=== PATIENT | female | born 1940 | race Caucasian/White ===

== ENCOUNTER 2017-06-29 18:26 | Inpatient (IN) | payer OTHER ==
[~2017-06-29] VITALS: Ht 157.5 cm; Wt 136.1 kg
[~2017-06-29 18:26] MED LIST: ABILIFY2 MG PO; ADULT LOW DOSE81 M1 PO; ALLOPURINOL300 MG PO; AQUA CARE71 GM TP; AQUAPHOR OINTM105 GM TP; AQUAPHOR W-NAT50 GM TP; ARICEPT10 MG PO; ASPIR 8181 M1 PO; ATIVAN0.5 MG PO; BACTRIM,SEPT1 TABLET PO; BAYER CHEWABLE81 MG PO; CALCIUM 600 +1 EA17 PO; CALMOSEPTINE O120 GM TP; CARDIZEM CD,CA180 MG PO; CELEXA20 MG PO; CLEOCIN300 MG PO; COUMADIN3 MG PO; CYANOCOBALAM1000 MCG PO; CYMBALTA30 MG PO; CYMBALTA60 MG PO; DELTASONE20 M1 PO; DEPAKENE250 MG/5 M PO; DIGITEK125 MC2 PO; DIGOX125 MCG PO; DONEPEZIL HCL10 MG PO; DUONEB 2.5-0.5 M3 ML AEROSOL; FEOSOL325 MG PO; FERROUS SULFAT325 MG PO; GLUCOPHAGE1000 MG PO; HYDROPHOR228 GM TP; IRON325 M1 PO; LASIX40 MG PO; LEVAQUIN500 MG PO; LIPITOR20 MG PO; LO-DOSE ASPIRIN81 M1 PO; LOPRESSOR25 MG PO; LORAZEPAM0.5 MG PO; METFORMIN HCL850 MG PO; METOPROLOL TART25 MG PO; MYCOSTATIN1 APPLICAT TP; NAMENDA XR14 MG PO; NAMENDA5 MG PO; NAPROSYN500 MG PO; NOVOLOG PE100 UNITS/ SC; NYAMYC60 GM TP; NYSTOP60 GM TP; OYSCO-500500 MG PO; OYSTER SHELL 51 EACH PO; PAXIL10 MG PO; POTASSIUM20 MEQ/11 PO; PREDNISONE20 MG PO; PROMETHAZINE-C120 ML PO; RISAMINE OINTM113 GM TP; SENEXON-S TABL1 EACH PO; SENNA PLUS TAB1 EACH PO; SEROQUEL12.5 MG PO; SEROQUEL50 MG PO; SPIRIVA RESPIMAT4 GM IH; TRAMADOL HCL50 MG PO; TYLENOL REGULA325 MG PO; Tums,OsCal PO; ULTRAM50 MG PO; WELLBUTRIN XL300 MG PO; XARELTO15 MG PO; ZANTAC150 MG PO; ZITHROMAX Z-PA250 MG PO; ZYLOPRIM100 MG PO; ZYLOPRIM300 MG PO
[2017-06-29 19:19] LABS: EOSINOPHIL (%) 0 % (0-5); HEMATOCRIT 40.1 % (36.0-46.0); IMMATURE GRANULOCYTE (%) 0.7 % (0.0-0.7); IMMATURE GRANULOCYTE COUNT 0.1 K/uL; LYMPHOCYTE COUNT 0.8 K/uL (1.0-2.8); MCH 30.4 PG (29.0-34.0); MCHC 32.9 G/DL (30.0-36.0); MCV 92.4 FL (83-99); MEAN PLAT.VOLUME 9.2 uM^3 (9.5-12.4); MONOCYTE (%) 8.1 % (3-12); MONOCYTE COUNT 1.7 K/uL (0-0.8); NEUTROPHIL (%) 87.1 % (45-76); PLATELET COUNT 313 K/uL (156-360); RBC DIS.WIDTH-SD 50.5 % (39-53); RED BLOOD COUNT 4.34 M/uL (3.80-5.20); WHITE BLOOD COUNT 20.7 K/uL (4.1-10.2)
[2017-06-29 19:27] LABS: CHLORIDE 98 mEq/L (99-109); POTASSIUM 3.8 mEq/L (3.7-5.4); SODIUM 135 mEq/L (136-147)
[2017-06-29 19:28] LABS: MAGNESIUM 1.5 mg/dL (1.3-2.7)
[2017-06-29 19:29] LABS: GLUCOSE 190 mg/dL (70-99)
[2017-06-29 19:31] LABS: ANION GAP 11 MEQ/L (2-14)
[2017-06-29 19:33] LABS: GFR ESTIMATE (CALCULATED) > 59 mL/min/
[2017-06-29 19:34] LABS: UREA NITROGEN (BUN) 14 mg/dL (9-23)
[2017-06-29 19:41] LABS: TROP-I INTERPRETATION INDETERMINATE; TROPONIN-I 0.36 ng/mL (0.0-0.30)
[2017-06-29 22:01] LABS: INTER. NORMALIZED RATIO 2.2; PROTHROMBIN TIME 25.5 SEC (10.2-12.9)
[2017-06-29 22:31] LABS: BICARBONATE 29.1 mEq/L (22-26); CARBOXY HGB 2.6 % (0-5); COMMENTS - BLOOD GASES A+C+; DEVICE NC; O2 FLOW 3 L/MIN; PCO2 40 mm Hg (35-45); PO2 58 mm Hg (80-100); SITE LR; TOTAL RESP RATE 23 resp/min; pH 7.47 (7.35-7.45)
[2017-06-29 23:15] VITALS: BP 129/65
[2017-06-29 23:57] VITALS: BP 129/65
[2017-06-30] MEDS ORDERED: ARTIFICIAL TEAR15 M1 BOTH EYES (01:50)
[2017-06-30] MEDS ORDERED: AZELASTINE137 MCG/0. BOTH NARES (01:57)
[2017-06-30] MEDS ORDERED: BREO ELLIPTA I1 EACH IH (01:58)
[2017-06-30] MEDS ORDERED: COUMADIN1 MG PO (02:03)
[2017-06-30] MEDS ORDERED: DEPAKENE250 MG/5 M PO ×2 (02:06→02:07)
[2017-06-30] MEDS ORDERED: LASIX20 MG PO (02:08)
[2017-06-30] MEDS ORDERED: METFORMIN HCL500 MG PO (02:09)
[2017-06-30] MEDS ORDERED: NAMZARIC 14 MG1 EACH PO (02:10)
[2017-06-30] MEDS ORDERED: ZOLOFT50 MG PO (02:17)
[2017-06-30] MEDS ORDERED: ZYLOPRIM300 MG PO (02:18)
[2017-06-30] MEDS ORDERED: MILK OF MAGN PO (02:28)
[2017-06-30] MEDS ORDERED: COUGH SYRU100 MG/5 M PO (02:29)
[2017-06-30] MEDS ORDERED: BISACODYL SUPP10 MG PR (02:31)
[2017-06-30 04:13] VITALS: BP 129/74
[2017-06-30 05:30] LABS: INTER. NORMALIZED RATIO 1.8; PROTHROMBIN TIME 20.5 SEC (10.2-12.9)
[2017-06-30 05:45] LABS: TROP-I INTERPRETATION INDETERMINATE; TROPONIN-I 0.33 ng/mL (0.0-0.30)
[2017-06-30 09:00] VITALS: BP 115/83
[2017-06-30] MEDS ORDERED: SEROQUEL50 MG PO (09:57)
[2017-06-30 11:59] VITALS: BP 114/65
[2017-06-30 13:00] LABS: TROP-I INTERPRETATION NEGATIVE; TROPONIN-I 0.29 ng/mL (0.0-0.30)
[2017-06-30 15:15] LABS: METH RESISTANT S AUREUS PCR POSITIVE (NEGATIVE)
[2017-06-30 15:17] LABS: PROBE CHECK PASS; SPECIMEN PROCESSING CONTROL PASS
[2017-06-30 16:31] VITALS: BP 117/75
[2017-06-30 18:58] VITALS: BP 116/76
[2017-06-30 20:44] LABS: TROP-I INTERPRETATION NEGATIVE; TROPONIN-I 0.27 ng/mL (0.0-0.30)
[2017-06-30 23:05] VITALS: BP 108/74
[2017-07-01 04:30] VITALS: BP 120/66
[2017-07-01 05:47] LABS: ANION GAP 14 MEQ/L (2-14); CHLORIDE 97 MEQ/L (99-109); GFR ESTIMATE (CALCULATED) 31 mL/min/; GLUCOSE 237 mg/dL (70-99); POTASSIUM 4.4 MEQ/L (3.7-5.4); SAMPLE HEMOLYSIS CHECK 0; SAMPLE ICTERIC CHECK 0; SAMPLE LIPEMIA CHECK 0; SODIUM 134 MEQ/L (136-147)
[2017-07-01 06:07] LABS: UREA NITROGEN (BUN) 47 mg/dL (9-23)
[2017-07-01 06:08] LABS: HEMATOCRIT 35.2 % (36.0-46.0); MCH 29.9 PG (29.0-34.0); MCHC 31.5 G/DL (30.0-36.0); MCV 94.9 FL (83-99); PLATELET COUNT 344 K/uL (156-360); RBC DIS.WIDTH-CV 14.6 % (11.8-14.6); RBC DIS.WIDTH-SD 50.7 % (39-53); RED BLOOD COUNT 3.71 M/uL (3.80-5.20); WHITE BLOOD COUNT 17.6 K/uL (4.1-10.2)
[2017-07-01 06:08] LABS: INTER. NORMALIZED RATIO 1.9; PROTHROMBIN TIME 21.9 SEC (10.2-12.9)
[2017-07-01 07:40] VITALS: BP 103/63
[2017-07-01 11:42] VITALS: BP 105/68
[2017-07-01 19:57] VITALS: BP 131/67
[2017-07-01 23:55] VITALS: BP 111/61
[2017-07-02 04:48] VITALS: BP 114/77
[2017-07-02 05:36] LABS: INTER. NORMALIZED RATIO 3.2; PROTHROMBIN TIME 36.6 SEC (10.2-12.9)
[2017-07-02 07:36] VITALS: BP 114/62
[2017-07-02 11:49] VITALS: BP 119/61
[2017-07-02 15:39] LABS: POINT-OF-CARE METER ID UU14208750
[2017-07-02 20:24] VITALS: BP 110/75
[2017-07-02 21:43] LABS: POINT-OF-CARE METER ID UU14208750
[2017-07-03] VITALS (8 sets, daily range): BP systolic 110–161; BP diastolic 60–78
[2017-07-03 06:34] LABS: POINT-OF-CARE METER ID UU14208750
[2017-07-03 06:54] LABS: INTER. NORMALIZED RATIO 3.9; PROTHROMBIN TIME 44.5 SEC (10.2-12.9)
[2017-07-03 06:58] LABS: HEMATOCRIT 35.7 % (36.0-46.0); MCH 30.8 PG (29.0-34.0); MCHC 32.8 G/DL (30.0-36.0); MCV 93.9 FL (83-99); MEAN PLAT.VOLUME 9.4 uM^3 (9.5-12.4); NRBC (%) 0.5 /100 WBC (0-0); PLATELET COUNT 382 K/uL (156-360); RBC DIS.WIDTH-CV 14.8 % (11.8-14.6); RBC DIS.WIDTH-SD 51.3 % (39-53); WHITE BLOOD COUNT 12.3 K/uL (4.1-10.2)
[2017-07-03 07:22] LABS: Estimated Average Glucose 186 mg/dL (70-123); HEMOGLOBIN A1c (GLYCOHEMOGLOB) 8.1 % HGB (Below 5.7)
[2017-07-03 07:27] LABS: ANION GAP 8 MEQ/L (2-14); CHLORIDE 102 MEQ/L (99-109); GFR ESTIMATE (CALCULATED) 57 mL/min/; GLUCOSE 175 mg/dL (70-99); POTASSIUM 4.4 MEQ/L (3.7-5.4); SAMPLE HEMOLYSIS CHECK 0; SAMPLE ICTERIC CHECK 0; SAMPLE LIPEMIA CHECK 0; SODIUM 139 MEQ/L (136-147); UREA NITROGEN (BUN) 48 mg/dL (9-23)
[2017-07-03 12:10] LABS: POINT-OF-CARE METER ID UU14314084; POINT-OF-CARE USER ID PUTDRM
[2017-07-03 16:45] LABS: POINT-OF-CARE METER ID UU14208750; POINT-OF-CARE USER ID PUTDRM
[2017-07-03 21:41] LABS: POINT-OF-CARE METER ID UU14162508
[2017-07-04 03:34] VITALS: BP 136/70
[2017-07-04 06:53] LABS: INTER. NORMALIZED RATIO 2.5; PROTHROMBIN TIME 28.2 SEC (10.2-12.9)
[2017-07-04 06:58] LABS: POINT-OF-CARE METER ID UU14162508
[2017-07-04 07:30] VITALS: BP 124/74
[2017-07-04 11:40] VITALS: BP 126/72
[2017-07-04 11:54] LABS: POINT-OF-CARE METER ID UU14314084; POINT-OF-CARE USER ID PUTDRM
[2017-07-04 17:00] VITALS: BP 138/68
[2017-07-04 17:17] LABS: POINT-OF-CARE METER ID UU14314084
[2017-07-04 19:00] VITALS: BP 178/65
[2017-07-04 20:02] LABS: POINT-OF-CARE METER ID UU14314084
[2017-07-04 21:08] VITALS: BP 178/65
[2017-07-05 04:19] VITALS: BP 119/85
[2017-07-05 07:20] VITALS: BP 136/82
[2017-07-05 07:34] LABS: PROTHROMBIN TIME 22.8 SEC (10.2-12.9)
[2017-07-05 07:59] LABS: GFR ESTIMATE (CALCULATED) > 59 mL/min/
[2017-07-05 08:51] LABS: URIC ACID 3.5 mg/dL (3.1-9.2)
[2017-07-05 12:27] LABS: POINT-OF-CARE METER ID UU14314084
[2017-07-05 16:06] VITALS: BP 142/72
[2017-07-05 16:55] LABS: POINT-OF-CARE METER ID UU14208750
[2017-07-05 19:50] VITALS: BP 135/98
[2017-07-05 21:19] LABS: POINT-OF-CARE METER ID UU14314084
[2017-07-05 21:30] VITALS: BP 152/93
[2017-07-06] VITALS (7 sets, daily range): BP systolic 110–142; BP diastolic 60–93
[2017-07-06 06:12] LABS: POINT-OF-CARE METER ID UU14208750
[2017-07-06 06:40] LABS: PROTHROMBIN TIME 22.8 SEC (10.2-12.9)
[2017-07-06 11:58] LABS: POINT-OF-CARE METER ID UU14208750
[2017-07-06 17:01] LABS: POINT-OF-CARE METER ID UU14208750
[2017-07-06 22:26] LABS: POINT-OF-CARE METER ID UU14162508
[2017-07-07 04:08] VITALS: BP 115/65
[2017-07-07 06:33] LABS: POINT-OF-CARE METER ID UU14162508
[2017-07-07 06:55] VITALS: BP 142/80
[2017-07-07 07:04] LABS: INTER. NORMALIZED RATIO 2.2; PROTHROMBIN TIME 25.7 SEC (10.2-12.9)
[2017-07-07 11:41] LABS: POINT-OF-CARE METER ID UU14162508
[2017-07-07 12:02] VITALS: BP 122/70
[2017-07-07 15:19] VITALS: BP 176/80
[2017-07-07 16:51] LABS: POINT-OF-CARE METER ID UU14314084
[2017-07-07 18:07] VITALS: BP 130/70
[2017-07-07] MEDS ORDERED: DONEPEZIL HCL10 MG PO (18:45)
[2017-07-07] MEDS ORDERED: AMOX TR-K CLV1 EAC4 PO (18:45)
[2017-07-07] MEDS ORDERED: PRAVASTATIN SOD80 MG PO (18:49)
[2017-07-07] MEDS ORDERED: PREDNISONE20 MG PO (18:52)
[2017-07-07] MEDS ORDERED: LEVEMIR100 UNIT/2 SC (18:53)
[2017-07-07] MEDS ORDERED: NOVOLOG PE100 UNITS/ SC (18:53)
[2017-07-07 19:36] VITALS: BP 129/96
[2017-07-07 21:50] LABS: POINT-OF-CARE METER ID UU14162508
[2017-07-08 00:25] VITALS: BP 128/83
[2017-07-08 03:44] VITALS: BP 125/58; BP 125/82
[2017-07-08 03:48] VITALS: BP 125/58
[2017-07-08 04:13] VITALS: BP 125/82
[2017-07-08 06:24] LABS: INTER. NORMALIZED RATIO 2.2; PROTHROMBIN TIME 25.1 SEC (10.2-12.9)
[2017-07-08 07:24] LABS: POINT-OF-CARE METER ID UU14162508
[2017-07-08 08:06] VITALS: BP 132/77
[2017-07-08 11:48] VITALS: BP 139/78
[2017-07-08 12:21] LABS: POINT-OF-CARE METER ID UU14162508
== END 2017-07-08 13:50 | DRG 193 ==
LOC: EME 18:26 → 4EAST 20:47 → EDOF 20:47 → ENRESERV 21:04 → 4EAST 23:05 → ENRESERV 07-02 13:35 → 2EAST 07-02 14:58
PROVIDERS: Emergency Medicine; Family Medicine
DX: J18.9 Pneumonia, unspecified organism (principal); J44.0 Chronic obstructive pulmonary disease with (acute) lower respiratory infection; J44.1 Chronic obstructive pulmonary disease with (acute) exacerbation; I11.0 Hypertensive heart disease with heart failure; I50.31 Acute diastolic (congestive) heart failure; E87.1 Hypo-osmolality and hyponatremia; I48.2 Chronic atrial fibrillation; R09.02 Hypoxemia; E78.5 Hyperlipidemia, unspecified; E11.51 Type 2 diabetes mellitus with diabetic peripheral angiopathy without gangrene; F01.50 Vascular dementia, unspecified severity, without behavioral disturbance, psychotic disturbance, mood disturbance, and anxiety; F41.9 Anxiety disorder, unspecified; F32.9 Major depressive disorder, single episode, unspecified; M19.90 Unspecified osteoarthritis, unspecified site; E66.01 Morbid (severe) obesity due to excess calories; Z68.43 Body mass index [BMI] 50.0-59.9, adult; Z79.01 Long term (current) use of anticoagulants; Z79.4 Long term (current) use of insulin; Z86.73 Personal history of transient ischemic attack (TIA), and cerebral infarction without residual deficits; Z87.891 Personal history of nicotine dependence; Z22.322 Carrier or suspected carrier of Methicillin resistant Staphylococcus aureus
CPT/HCPCS: 36600; 71010; 71020; 71260; 73630; 74230; 80048; 80202; 81003; 82565; 82803; 82948; 83036; 83605; 83735; 83880; 84443; 84484; 84550; 85025; 85027; 85610; 87040; 87070; 87086; 87205; 87449; 87641; 92611 GN; 93005; 93971; 94640; 94640 76; 94667; 94668; 94760; 94799; 97530 GO; 97530 GP; 99202; 99281; 99285; J1815; J2543; J2930; J3370; J3475; J7050; J7512; S0073

== ENCOUNTER 2017-07-11 05:16 | Inpatient (IN) | payer OTHER ==
[~2017-07-11] VITALS: Ht 157.5 cm; Wt 128.7 kg
[2017-07-11] VITALS (10 sets, daily range): BP systolic 104–144; BP diastolic 76–105
[~2017-07-11 05:16] MED LIST changes: +AMOX TR-K CLV1 EAC4 PO; +ARTIFICIAL TEAR15 M1 BOTH EYES; +AZELASTINE137 MCG/0. BOTH NARES; +BISACODYL SUPP10 MG PR; +BREO ELLIPTA I1 EACH IH; +COUGH SYRU100 MG/5 M PO; +COUMADIN1 MG PO; +LASIX20 MG PO; +LEVEMIR100 UNIT/2 SC; +METFORMIN HCL500 MG PO; +MILK OF MAGN PO; +NAMZARIC 14 MG1 EACH PO; +PRAVASTATIN SOD80 MG PO; +ZOLOFT50 MG PO
[2017-07-11 06:18] LABS: INTER. NORMALIZED RATIO 3.1
[2017-07-11 06:21] LABS: PTT 28.6 SEC (25-37)
[2017-07-11 06:23] LABS: BASE EXCESS 7.7 mEq/L (-3 to +3); BICARBONATE 33.2 mEq/L (22-26); CARBOXY HGB 3.6 % (0-5); COMMENTS - BLOOD GASES C+; DEVICE VENT; FI02 40 %; METHEMOGLOBIN 0.4 % (0-1.5); MODE NIV; PCO2 50 mm Hg (35-45); PO2 89 mm Hg (80-100); SITE RR; TOTAL RESP RATE 25 resp/min; pH 7.43 (7.35-7.45)
[2017-07-11 06:24] LABS: PEEP 6 CM/H20; PRES. SUPPORT 12 CM/H2O
[2017-07-11 06:24] LABS: CHLORIDE 100 mEq/L (99-109); MAGNESIUM 1.8 mg/dL (1.3-2.7); SODIUM 142 mEq/L (136-147)
[2017-07-11 06:25] LABS: GLUCOSE 219 mg/dL (70-99)
[2017-07-11 06:27] LABS: ANION GAP 14 MEQ/L (2-14)
[2017-07-11 06:29] LABS: GFR ESTIMATE (CALCULATED) > 59 mL/min/
[2017-07-11 06:30] LABS: UREA NITROGEN (BUN) 20 mg/dL (9-23)
[2017-07-11 06:33] LABS: TROP-I INTERPRETATION NEGATIVE; TROPONIN-I 0.25 ng/mL (0.0-0.30)
[2017-07-11 06:49] LABS: BASOPHIL COUNT 0.1 K/uL (0-0.1); EOSINOPHIL (%) 0.1 % (0-5); HEMATOCRIT 37.4 % (36.0-46.0); IMMATURE GRANULOCYTE (%) 1.4 % (0.0-0.7); IMMATURE GRANULOCYTE COUNT 0.4 K/uL; INSTRUMENT ABS NEUTROPHIL CT 23.5 K/uL; LYMPHOCYTE COUNT 1.5 K/uL (1.0-2.8); MCH 30.4 PG (29.0-34.0); MCHC 31.6 G/DL (30.0-36.0); MCV 96.4 FL (83-99); MEAN PLAT.VOLUME 9.3 uM^3 (9.5-12.4); MONOCYTE COUNT 1.6 K/uL (0-0.8); NEUTROPHIL (%) 86.9 % (45-76); NEUTROPHIL COUNT 23.5 K/uL (1.8-6.4); NRBC (%) 0.1 /100 WBC (0-0); PLATELET COUNT 405 K/uL (156-360); RBC DIS.WIDTH-CV 15.9 % (11.8-14.6); RED BLOOD COUNT 3.88 M/uL (3.80-5.20)
[2017-07-11] MEDS ORDERED: COUMADIN1 MG PO (08:24)
[2017-07-11] MEDS ORDERED: DILTIAZEM 24HR180 MG PO (08:28)
[2017-07-11] MEDS ORDERED: LASIX20 MG PO (08:31)
[2017-07-11] MEDS ORDERED: PREDNISONE20 MG PO (08:36)
[2017-07-11 11:33] LABS: METH RESISTANT S AUREUS PCR POSITIVE (NEGATIVE)
[2017-07-11 11:36] LABS: PROBE CHECK PASS
[2017-07-11 13:06] LABS: POINT-OF-CARE METER ID UU14314083
[2017-07-11 17:49] LABS: POINT-OF-CARE METER ID UU14314083
[2017-07-11 22:19] LABS: POINT-OF-CARE METER ID UU14314083
[2017-07-12] VITALS (13 sets, daily range): BP systolic 106–147; BP diastolic 76–117
[2017-07-12 07:48] LABS: POINT-OF-CARE METER ID UU14208751
[2017-07-12 11:53] LABS: POINT-OF-CARE METER ID UU14208751
[2017-07-12 15:07] LABS: POINT-OF-CARE METER ID UU14208751
[2017-07-12 15:15] LABS: INTER. NORMALIZED RATIO 3.2; PROTHROMBIN TIME 36.2 SEC (10.2-12.9)
[2017-07-12 21:01] LABS: POINT-OF-CARE METER ID UU13113725
[2017-07-13 00:07] VITALS: BP 128/75
[2017-07-13 06:35] LABS: EOSINOPHIL (%) 0.4 % (0-5); EOSINOPHIL COUNT 0.1 K/uL (0-0.3); HEMATOCRIT 33.1 % (36.0-46.0); IMMATURE GRANULOCYTE (%) 0.6 % (0.0-0.7); IMMATURE GRANULOCYTE COUNT 0.1 K/uL; INSTRUMENT ABS NEUTROPHIL CT 11.1 K/uL; LYMPHOCYTE COUNT 1.8 K/uL (1.0-2.8); MCH 30.3 PG (29.0-34.0); MCHC 31.7 G/DL (30.0-36.0); MCV 95.4 FL (83-99); MEAN PLAT.VOLUME 9.2 uM^3 (9.5-12.4); MONOCYTE (%) 7.2 % (3-12); NEUTROPHIL (%) 79.1 % (45-76); NEUTROPHIL COUNT 11.1 K/uL (1.8-6.4); PLATELET COUNT 377 K/uL (156-360); RBC DIS.WIDTH-CV 15.4 % (11.8-14.6); RBC DIS.WIDTH-SD 52.3 % (39-53); RED BLOOD COUNT 3.47 M/uL (3.80-5.20)
[2017-07-13 06:39] LABS: POINT-OF-CARE METER ID UU13113774
[2017-07-13 06:54] LABS: INTER. NORMALIZED RATIO 3.1; PROTHROMBIN TIME 35.1 SEC (10.2-12.9)
[2017-07-13 06:57] LABS: ANION GAP 10 MEQ/L (2-14); CHLORIDE 99 MEQ/L (99-109); GFR ESTIMATE (CALCULATED) > 59 mL/min/; GLUCOSE 128 mg/dL (70-99); POTASSIUM 3.8 MEQ/L (3.7-5.4); SAMPLE HEMOLYSIS CHECK 0; SAMPLE ICTERIC CHECK 0; SAMPLE LIPEMIA CHECK 0; SODIUM 144 MEQ/L (136-147); UREA NITROGEN (BUN) 26 mg/dL (9-23)
[2017-07-13 07:10] VITALS: BP 134/81
[2017-07-13 11:25] LABS: POINT-OF-CARE METER ID UU13113725
[2017-07-13] MEDS ORDERED: NOVOLOG PE100 UNITS/ SC (11:26)
[2017-07-13] MEDS ORDERED: Zeasorb Antifungal T TP (11:27)
== END 2017-07-13 14:18 | DRG 190 ==
LOC: EME → EDBD 05:16 → EME 05:16 → EDOF 08:47 → 4WEST 08:47 → ENRESERV 08:53 → 4WEST 09:20 → ENRESERV 07-12 16:30 → 5EAST 07-12 19:36
PROVIDERS: Emergency Medicine; Family Medicine; Internal Medicine Critical Care Medicine
PROC: 5A09358 Assistance with Respiratory Ventilation, Less than 24 Consecutive Hours, Intermittent Positive Airway Pressure (ICD-10-PCS; principal; 2017-07-11)
DX: J44.1 Chronic obstructive pulmonary disease with (acute) exacerbation (principal); J96.01 Acute respiratory failure with hypoxia; I11.0 Hypertensive heart disease with heart failure; I50.33 Acute on chronic diastolic (congestive) heart failure; I16.1 Hypertensive emergency; I48.2 Chronic atrial fibrillation; G47.33 Obstructive sleep apnea (adult) (pediatric); Z99.81 Dependence on supplemental oxygen; E87.2 Acidosis; D72.829 Elevated white blood cell count, unspecified; Z91.19 Patient's noncompliance with other medical treatment and regimen; F03.90 Unspecified dementia, unspecified severity, without behavioral disturbance, psychotic disturbance, mood disturbance, and anxiety; E11.51 Type 2 diabetes mellitus with diabetic peripheral angiopathy without gangrene; M19.90 Unspecified osteoarthritis, unspecified site; F32.9 Major depressive disorder, single episode, unspecified; F41.9 Anxiety disorder, unspecified; F42.9 Obsessive-compulsive disorder, unspecified; E66.9 Obesity, unspecified; Z68.43 Body mass index [BMI] 50.0-59.9, adult; E78.5 Hyperlipidemia, unspecified; Z87.01 Personal history of pneumonia (recurrent); Z86.73 Personal history of transient ischemic attack (TIA), and cerebral infarction without residual deficits; Z79.84 Long term (current) use of oral hypoglycemic drugs; Z79.01 Long term (current) use of anticoagulants; Z87.891 Personal history of nicotine dependence
CPT/HCPCS: 36600; 71010; 71250; 80048; 82803; 82948; 83605; 83735; 83880; 84484; 85025; 85610; 85730; 87040; 87502; 87641; 93005; 94002; 94640; 94660; 94799; 99281; 99285; J0692; J1815; J1940; J7050; J7512

== ENCOUNTER 2017-09-09 17:05 | Inpatient (IN) | payer OTHER ==
[~2017-09-09] VITALS: Ht 157.5 cm; Wt 124.8 kg
[~2017-09-09 17:05] MED LIST changes: +DILTIAZEM 24HR180 MG PO; +Zeasorb Antifungal T TP
[2017-09-09 18:05] LABS: HEMATOCRIT 36.4 % (36.0-46.0); HEMOGLOBIN 11.8 G/DL (11.9-15.5); MCH 29.1 PG (29.0-34.0); MCHC 32.4 G/DL (30.0-36.0); MCV 89.7 FL (83-99); PLATELET COUNT 451 K/uL (156-360); RBC DIS.WIDTH-CV 15.7 % (11.8-14.6); RBC DIS.WIDTH-SD 51.4 % (39-53); RED BLOOD COUNT 4.06 M/uL (3.80-5.20); WHITE BLOOD COUNT 11.1 K/uL (4.1-10.2)
[2017-09-09 18:11] LABS: INTER. NORMALIZED RATIO 3.2
[2017-09-09 18:13] LABS: PTT 33.3 SEC (25-37)
[2017-09-09 18:14] LABS: CHLORIDE 100 mEq/L (99-109); POTASSIUM 3.9 mEq/L (3.7-5.4); SODIUM 140 mEq/L (136-147)
[2017-09-09 18:16] LABS: GLUCOSE 167 mg/dL (70-99)
[2017-09-09 18:20] LABS: CREATININE 0.7 mg/dL (0.6-1.3); GFR ESTIMATE (CALCULATED) > 59 mL/min/; UREA NITROGEN (BUN) 10 mg/dL (9-23)
[2017-09-09 18:27] LABS: TROP-I INTERPRETATION INDETERMINATE; TROPONIN-I 0.49 ng/mL (0.0-0.30)
[2017-09-09] MEDS ORDERED: LOW DOSE ASPIRI81 M1 PO (19:07)
[2017-09-09] MEDS ORDERED: AZELASTINE137 MCG/0. BOTH NARES (19:08)
[2017-09-09] MEDS ORDERED: ATIVAN0.5 MG PO ×2 (19:08→19:19)
[2017-09-09] MEDS ORDERED: BREO ELLIPTA I1 EACH IH (19:09)
[2017-09-09] MEDS ORDERED: CALCIUM 600 +1 EAC3 PO (19:10)
[2017-09-09] MEDS ORDERED: COUMADIN3 MG PO (19:11)
[2017-09-09] MEDS ORDERED: CYMBALTA60 MG PO (19:11)
[2017-09-09] MEDS ORDERED: DEPAKENE250 MG/5 M PO ×2 (19:12→19:13)
[2017-09-09] MEDS ORDERED: DILTIAZEM 24HR180 MG PO (19:14)
[2017-09-09] MEDS ORDERED: GLUCOPHAGE1000 MG PO (19:15)
[2017-09-09] MEDS ORDERED: LASIX40 MG PO (19:15)
[2017-09-09] MEDS ORDERED: POTASSIUM20 MEQ/11 PO (19:16)
[2017-09-09] MEDS ORDERED: NAMZARIC 14 MG1 EACH PO (19:16)
[2017-09-09] MEDS ORDERED: PRAVACHOL80 MG PO (19:17)
[2017-09-09] MEDS ORDERED: SEROQUEL50 MG PO (19:17)
[2017-09-09] MEDS ORDERED: ULTRAM50 MG PO (19:18)
[2017-09-09] MEDS ORDERED: ZYLOPRIM300 MG PO (19:18)
[2017-09-09] MEDS ORDERED: ZOLOFT50 MG PO (19:18)
[2017-09-09] MEDS ORDERED: BISAC-EVAC10 MG PR (19:20)
[2017-09-09] MEDS ORDERED: COUGH SYRU100 MG/5 M PO (19:22)
[2017-09-10 06:40] LABS: HEMATOCRIT 35.5 % (36.0-46.0); HEMOGLOBIN 11.1 G/DL (11.9-15.5); MCH 28.2 PG (29.0-34.0); MCHC 31.3 G/DL (30.0-36.0); MCV 90.3 FL (83-99); NRBC (%) 0.7 /100 WBC (0-0); PLATELET COUNT 399 K/uL (156-360); RBC DIS.WIDTH-CV 15.6 % (11.8-14.6); RED BLOOD COUNT 3.93 M/uL (3.80-5.20); WHITE BLOOD COUNT 7.4 K/uL (4.1-10.2)
[2017-09-10 07:49] LABS: CHLORIDE 102 MEQ/L (99-109); SODIUM 141 MEQ/L (136-147)
[2017-09-10 07:51] LABS: POTASSIUM 4.7 MEQ/L (3.7-5.4)
[2017-09-10 07:54] LABS: CREATININE 0.9 MG/DL (0.6-1.3); GFR ESTIMATE (CALCULATED) > 59 mL/min/; GLUCOSE 170 mg/dL (70-99); UREA NITROGEN (BUN) 16 mg/dL (9-23)
[2017-09-10 08:55] LABS: INTER. NORMALIZED RATIO 2.5
[2017-09-10 16:29] VITALS: BP 120/83
[2017-09-10 17:40] LABS: TROP-I INTERPRETATION INDETERMINATE; TROPONIN-I 0.46 ng/mL (0.0-0.30)
[2017-09-10 19:27] VITALS: BP 114/62
[2017-09-10 22:32] VITALS: BP 118/92
[2017-09-11 02:43] VITALS: BP 124/82
[2017-09-11 07:54] LABS: INTER. NORMALIZED RATIO 2.5
[2017-09-11 10:28] LABS: BASE EXCESS -0.5 mEq/L (-3 to +3); BICARBONATE 24.9 mEq/L (22-26); CARBOXY HGB 2.1 % (0-5); COMMENTS - BLOOD GASES A+C+; METHEMOGLOBIN 1.7 % (0-1.5); PCO2 43 mm Hg (35-45); PO2 65 mm Hg (80-100); SITE LR; pH 7.37 (7.35-7.45)
[2017-09-11 10:29] LABS: DEVICE NC; O2 FLOW 4 L/MIN; TOTAL RESP RATE 20 resp/min
[2017-09-11 20:16] VITALS: BP 105/74
[2017-09-12 01:06] VITALS: BP 107/77
[2017-09-12 04:30] VITALS: BP 121/64
[2017-09-12 05:55] LABS: INTER. NORMALIZED RATIO 2.8
[2017-09-12 08:15] VITALS: BP 148/89
[2017-09-12 12:00] VITALS: BP 118/79
[2017-09-12 15:15] VITALS: BP 146/84
[2017-09-12 19:37] VITALS: BP 118/81
[2017-09-12 21:12] LABS: C DIFF TOXIN NEGATIVE (NEGATIVE)
[2017-09-13 05:32] LABS: INTER. NORMALIZED RATIO 3.6
[2017-09-13 08:30] VITALS: BP 138/82
[2017-09-13 11:10] VITALS: BP 120/82
[2017-09-13 16:24] VITALS: BP 121/88
[2017-09-13 18:27] VITALS: BP 138/89
[2017-09-13 20:24] VITALS: BP 130/72
[2017-09-14 00:15] VITALS: BP 135/74
[2017-09-14 03:58] VITALS: BP 128/72
[2017-09-14 06:49] LABS: HEMATOCRIT 36.6 % (36.0-46.0); HEMOGLOBIN 11.3 G/DL (11.9-15.5); MCH 28.3 PG (29.0-34.0); MCHC 30.9 G/DL (30.0-36.0); MCV 91.5 FL (83-99); NRBC (%) 0.6 /100 WBC (0-0); PLATELET COUNT 500 K/uL (156-360); RBC DIS.WIDTH-CV 15.9 % (11.8-14.6); WHITE BLOOD COUNT 12.4 K/uL (4.1-10.2)
[2017-09-14 06:54] LABS: INTER. NORMALIZED RATIO 3.7
[2017-09-14 07:25] LABS: ALBUMIN 3.6 G/DL (3.2-4.8); ALKALINE PHOSPHATASE 44 IU/L (3-129); ALT (GPT) 14 IU/L (3-49); AST (GOT) 14 IU/L (2-34); CHLORIDE 100 MEQ/L (99-109); CREATININE 0.9 MG/DL (0.6-1.3); GFR ESTIMATE (CALCULATED) > 59 mL/min/; GLUCOSE 178 mg/dL (70-99); SODIUM 141 MEQ/L (136-147); TOTAL BILIRUBIN 0.4 MG/DL (0.0-1.0); TOTAL PROTEIN 6.6 G/DL (6.4-8.3)
[2017-09-14 07:26] LABS: UREA NITROGEN (BUN) 43 mg/dL (9-23)
[2017-09-14 09:02] VITALS: BP 133/79
[2017-09-14 17:17] VITALS: BP 129/68
[2017-09-14 19:55] VITALS: BP 138/70
[2017-09-15] VITALS (13 sets, daily range): BP systolic 121–151; BP diastolic 68–109
[2017-09-15 08:19] LABS: BASE EXCESS 12.2 mEq/L (-3 to +3); BICARBONATE 37.8 mEq/L (22-26); CARBOXY HGB 2.3 % (0-5); COMMENTS - BLOOD GASES A+C+; METHEMOGLOBIN 1.7 % (0-1.5); O2 FLOW 15 L/MIN; PCO2 52 mm Hg (35-45); PO2 252 mm Hg (80-100); SITE RR; pH 7.47 (7.35-7.45)
[2017-09-15 08:20] LABS: DEVICE NRBM; FI02 100 %; TOTAL RESP RATE 35 resp/min
[2017-09-15 08:22] LABS: HEMATOCRIT 38.8 % (36.0-46.0); HEMOGLOBIN 12.1 G/DL (11.9-15.5); MCH 27.9 PG (29.0-34.0); MCHC 31.2 G/DL (30.0-36.0); MCV 89.6 FL (83-99); NRBC (%) 0.7 /100 WBC (0-0); PLATELET COUNT 625 K/uL (156-360); RBC DIS.WIDTH-CV 15.7 % (11.8-14.6); RBC DIS.WIDTH-SD 51.3 % (39-53); RED BLOOD COUNT 4.33 M/uL (3.80-5.20); WHITE BLOOD COUNT 17.6 K/uL (4.1-10.2)
[2017-09-15 08:36] LABS: CHLORIDE 97 MEQ/L (99-109); CREATININE 0.8 MG/DL (0.6-1.3); GFR ESTIMATE (CALCULATED) > 59 mL/min/; GLUCOSE 160 mg/dL (70-99); SODIUM 144 MEQ/L (136-147); UREA NITROGEN (BUN) 36 mg/dL (9-23)
[2017-09-15 08:37] LABS: POTASSIUM 3.9 MEQ/L (3.7-5.4)
[2017-09-16] VITALS (7 sets, daily range): BP systolic 91–146; BP diastolic 74–99
[2017-09-16 07:17] LABS: INTER. NORMALIZED RATIO 2.1
[2017-09-17] VITALS (7 sets, daily range): BP systolic 109–120; BP diastolic 69–91
[2017-09-17 06:19] LABS: INTER. NORMALIZED RATIO 1.6
[2017-09-18 04:50] VITALS: BP 117/84
[2017-09-18 06:34] LABS: INTER. NORMALIZED RATIO 1.6
[2017-09-18 08:30] VITALS: BP 117/84
[2017-09-18 11:15] VITALS: BP 114/80
[2017-09-18 16:14] VITALS: BP 125/91
[2017-09-18 19:23] VITALS: BP 114/62
[2017-09-19] VITALS (7 sets, daily range): BP systolic 113–141; BP diastolic 68–107
[2017-09-19 06:28] LABS: HEMATOCRIT 38.8 % (36.0-46.0); HEMOGLOBIN 12.2 G/DL (11.9-15.5); MCH 27.7 PG (29.0-34.0); MCHC 31.4 G/DL (30.0-36.0); NRBC (%) 0.1 /100 WBC (0-0); PLATELET COUNT 491 K/uL (156-360); RBC DIS.WIDTH-CV 15.2 % (11.8-14.6); RBC DIS.WIDTH-SD 48.5 % (39-53); RED BLOOD COUNT 4.41 M/uL (3.80-5.20); WHITE BLOOD COUNT 15.5 K/uL (4.1-10.2)
[2017-09-19 06:29] LABS: INTER. NORMALIZED RATIO 1.9
[2017-09-19 06:45] LABS: CHLORIDE 93 MEQ/L (99-109); CREATININE 0.8 MG/DL (0.6-1.3); GFR ESTIMATE (CALCULATED) > 59 mL/min/; GLUCOSE 248 mg/dL (70-99); SODIUM 138 MEQ/L (136-147); UREA NITROGEN (BUN) 38 mg/dL (9-23)
[2017-09-19 06:49] LABS: POTASSIUM 4.8 MEQ/L (3.7-5.4)
[2017-09-20 04:30] VITALS: BP 133/79
[2017-09-20 05:26] LABS: HEMOGLOBIN 11.6 G/DL (11.9-15.5); MCH 27.7 PG (29.0-34.0); MCHC 31.4 G/DL (30.0-36.0); MCV 88.3 FL (83-99); NRBC (%) 0.1 /100 WBC (0-0); PLATELET COUNT 494 K/uL (156-360); RBC DIS.WIDTH-CV 15.1 % (11.8-14.6); RBC DIS.WIDTH-SD 48.5 % (39-53); RED BLOOD COUNT 4.19 M/uL (3.80-5.20); WHITE BLOOD COUNT 17.6 K/uL (4.1-10.2)
[2017-09-20 06:04] LABS: ALBUMIN 3.3 G/DL (3.2-4.8); ALKALINE PHOSPHATASE 39 IU/L (3-129); ALT (GPT) 26 IU/L (3-49); AST (GOT) 14 IU/L (2-34); CHLORIDE 93 MEQ/L (99-109); CREATININE 0.8 MG/DL (0.6-1.3); GFR ESTIMATE (CALCULATED) > 59 mL/min/; GLUCOSE 249 mg/dL (70-99); POTASSIUM 4.9 MEQ/L (3.7-5.4); SODIUM 139 MEQ/L (136-147); TOTAL PROTEIN 5.9 G/DL (6.4-8.3); UREA NITROGEN (BUN) 39 mg/dL (9-23)
[2017-09-20 06:05] LABS: TOTAL BILIRUBIN 0.5 MG/DL (0.0-1.0)
[2017-09-20 08:20] VITALS: BP 138/108
[2017-09-20 11:37] VITALS: BP 133/97
[2017-09-20 16:00] VITALS: BP 147/94
[2017-09-20 19:26] VITALS: BP 146/96
[2017-09-20 23:06] VITALS: BP 110/75
[2017-09-21 04:47] VITALS: BP 124/79
[2017-09-21 05:38] LABS: INTER. NORMALIZED RATIO 2.1
[2017-09-21 08:35] VITALS: BP 133/106
[2017-09-21 12:17] VITALS: BP 132/91
[2017-09-21 16:41] VITALS: BP 132/98
[2017-09-21 20:47] VITALS: BP 125/93
[2017-09-22 03:35] VITALS: BP 168/93
[2017-09-22 05:46] LABS: INTER. NORMALIZED RATIO 1.8
[2017-09-22 07:45] VITALS: BP 178/86
[2017-09-22 11:24] VITALS: BP 172/84
[2017-09-22 15:54] VITALS: BP 155/64
[2017-09-22 20:04] VITALS: BP 126/93
[2017-09-22 23:24] VITALS: BP 122/74
[2017-09-23 03:37] VITALS: BP 114/72
[2017-09-23 06:39] LABS: INTER. NORMALIZED RATIO 1.7
[2017-09-23 07:52] VITALS: BP 122/62
[2017-09-23 11:43] VITALS: BP 121/96
[2017-09-23 15:13] VITALS: BP 125/89
[2017-09-23] MEDS ORDERED: CEFTIN500 MG PO (15:45)
[2017-09-23] MEDS ORDERED: ATROVENT 00.5 MG/2.5 PEP (15:46)
[2017-09-23] MEDS ORDERED: SPIRIVA RESPIMAT4 GM IH (15:46)
[2017-09-23] MEDS ORDERED: XOPENEX1.25 MG/0. AEROSOL (15:47)
[2017-09-23] MEDS ORDERED: FLORASTOR250 MG PO (15:55)
[2017-09-23] MEDS ORDERED: SSD25GM TP (15:56)
[2017-09-23] MEDS ORDERED: NIZORAL 2% CREA15 GM TP (15:56)
[2017-09-23] MEDS ORDERED: Robitussin AC,Tussi- PO (15:57)
== END 2017-09-23 21:24 | DRG 189 ==
LOC: EME 17:05 → 4EAST 19:04 → 2EAST 19:04 → EDOF 19:04 → ENRESERV 19:16 → EDOF 09-10 14:51 → 4EAST 09-10 16:02 → ENRESERV 09-13 08:59 → 2EAST 09-13 17:57 → ENRESERV 09-15 08:24 → 4WEST 09-15 08:43 → ENRESERV 09-15 21:34 → 4EAST 09-16 02:38 → ENRESERV 09-21 17:20 → 3EAST 09-21 20:24
PROVIDERS: Emergency Medicine; Family Medicine; Internal Medicine; Internal Medicine Cardiovascular Disease; Internal Medicine Pulmonary Disease
PROC: 5A09357 Assistance with Respiratory Ventilation, Less than 24 Consecutive Hours, Continuous Positive Airway Pressure (ICD-10-PCS; principal; 2017-09-09)
DX: J96.01 Acute respiratory failure with hypoxia (principal); J44.0 Chronic obstructive pulmonary disease with (acute) lower respiratory infection; J44.1 Chronic obstructive pulmonary disease with (acute) exacerbation; I27.20 Pulmonary hypertension, unspecified; I11.0 Hypertensive heart disease with heart failure; I48.1 Persistent atrial fibrillation; E11.51 Type 2 diabetes mellitus with diabetic peripheral angiopathy without gangrene; E66.01 Morbid (severe) obesity due to excess calories; I48.2 Chronic atrial fibrillation; E11.9 Type 2 diabetes mellitus without complications; M19.90 Unspecified osteoarthritis, unspecified site; R53.83 Other fatigue; I50.30 Unspecified diastolic (congestive) heart failure; G47.31 Primary central sleep apnea; K62.3 Rectal prolapse; F32.9 Major depressive disorder, single episode, unspecified; I73.9 Peripheral vascular disease, unspecified; J20.9 Acute bronchitis, unspecified; I35.1 Nonrheumatic aortic (valve) insufficiency; F41.9 Anxiety disorder, unspecified; F03.90 Unspecified dementia, unspecified severity, without behavioral disturbance, psychotic disturbance, mood disturbance, and anxiety; R00.0 Tachycardia, unspecified; R06.03 Acute respiratory distress; R15.9 Full incontinence of feces; M54.9 Dorsalgia, unspecified; B37.89 Other sites of candidiasis; E78.5 Hyperlipidemia, unspecified; M10.9 Gout, unspecified; Z86.73 Personal history of transient ischemic attack (TIA), and cerebral infarction without residual deficits; Z90.49 Acquired absence of other specified parts of digestive tract; Z68.43 Body mass index [BMI] 50.0-59.9, adult; Z90.710 Acquired absence of both cervix and uterus; Z79.01 Long term (current) use of anticoagulants; Z79.4 Long term (current) use of insulin; Z87.891 Personal history of nicotine dependence
CPT/HCPCS: 36600; 71045; 71046; 73630; 80048; 80053; 81003; 82803; 82948; 83880; 84484; 84550; 85027; 85610; 85730; 87040; 87086; 87493; 87502; 87641; 92526 GN; 92610 GN; 93005; 94640; 94640 76; 94660; 94799; 97530 GO; 99202; 99281; 99285; J0692; J0696; J1815; J1940; J2920; J2930; J7050; J7512

== ENCOUNTER 2017-11-06 06:53 | Inpatient (IN) | payer OTHER ==
[~2017-11-06] VITALS: Ht 160 cm; Wt 118.3 kg
[~2017-11-06 06:53] MED LIST changes: +ATROVENT 00.5 MG/2.5 PEP; +BISAC-EVAC10 MG PR; +CALCIUM 600 +1 EAC3 PO; +CEFTIN500 MG PO; +COUMADIN2.5 MG PO; +DILTIAZEM 24HR240 MG PO; +FLORASTOR250 MG PO; +LOW DOSE ASPIRI81 M1 PO; +NIZORAL 2% CREA15 GM TP; +PRAVACHOL80 MG PO; +Robitussin AC,Tussi- PO; +SSD25GM TP; +XOPENEX1.25 MG/0. AEROSOL; +ZOLOFT25 MG PO
[2017-11-06 07:31] LABS: BASOPHIL (%) 0.4 % (0-1); BASOPHIL COUNT 0.1 K/uL (0-0.1); EOSINOPHIL (%) 0.6 % (0-5); EOSINOPHIL COUNT 0.1 K/uL (0-0.3); HEMATOCRIT 39.9 % (36.0-46.0); HEMOGLOBIN 12.4 G/DL (11.9-15.5); IMMATURE GRANULOCYTE (%) 0.5 % (0.0-0.7); LYMPHOCYTE (%) 12.6 % (15-42); LYMPHOCYTE COUNT 1.9 K/uL (1.0-2.8); MCHC 31.1 G/DL (30.0-36.0); MCV 86.7 FL (83-99); MONOCYTE (%) 5.9 % (3-12); MONOCYTE COUNT 0.9 K/uL (0-0.8); NEUTROPHIL COUNT 12.1 K/uL (1.8-6.4); PLATELET COUNT 377 K/uL (156-360); RBC DIS.WIDTH-CV 18.7 % (11.8-14.6); RBC DIS.WIDTH-SD 59.4 % (39-53); WHITE BLOOD COUNT 15.1 K/uL (4.1-10.2)
[2017-11-06 07:38] LABS: INTER. NORMALIZED RATIO 1.3
[2017-11-06 07:40] LABS: PTT 23.6 SEC (25-37)
[2017-11-06 07:46] LABS: CHLORIDE 106 mEq/L (99-109); POTASSIUM 3.3 mEq/L (3.7-5.4); SODIUM 141 mEq/L (136-147)
[2017-11-06 07:47] LABS: GLUCOSE 209 mg/dL (70-99)
[2017-11-06 07:51] LABS: CREATININE 0.8 mg/dL (0.6-1.3); GFR ESTIMATE (CALCULATED) > 59 mL/min/
[2017-11-06 07:52] LABS: UREA NITROGEN (BUN) 8 mg/dL (9-23)
[2017-11-06 07:53] LABS: TROP-I INTERPRETATION NEGATIVE; TROPONIN-I 0.24 ng/mL (0.0-0.30)
[2017-11-06] MEDS ORDERED: DUONEB 2.5-0.5 M3 ML AEROSOL (13:54)
[2017-11-06] MEDS ORDERED: TYLENOL REGULA325 MG PO ×2 (13:55→14:10)
[2017-11-06] MEDS ORDERED: BUSPIRONE HCL5 MG PO (13:59)
[2017-11-06] MEDS ORDERED: GLIPIZIDE5 MG PO (14:03)
[2017-11-06] MEDS ORDERED: JANUVIA25 M1 PO (14:04)
[2017-11-06] MEDS ORDERED: MILK OF MAGN PO (14:10)
[2017-11-06 20:09] VITALS: BP 118/85
[2017-11-07] VITALS (7 sets, daily range): BP systolic 108–125; BP diastolic 65–84
[2017-11-08 03:03] VITALS: BP 100/67
[2017-11-08 07:46] LABS: HEMATOCRIT 37.2 % (36.0-46.0); HEMOGLOBIN 11.2 G/DL (11.9-15.5); MCH 26.7 PG (29.0-34.0); MCHC 30.1 G/DL (30.0-36.0); MCV 88.6 FL (83-99); PLATELET COUNT 307 K/uL (156-360); RBC DIS.WIDTH-CV 18.6 % (11.8-14.6); RBC DIS.WIDTH-SD 60.1 % (39-53); WHITE BLOOD COUNT 8.6 K/uL (4.1-10.2)
[2017-11-08 07:49] LABS: INTER. NORMALIZED RATIO 1.3
[2017-11-08 08:00] VITALS: BP 120/92
[2017-11-08 08:10] LABS: CHLORIDE 102 MEQ/L (99-109); CREATININE 0.9 MG/DL (0.6-1.3); GFR ESTIMATE (CALCULATED) > 59 mL/min/; SODIUM 139 MEQ/L (136-147); UREA NITROGEN (BUN) 11 mg/dL (9-23)
[2017-11-08 08:11] LABS: GLUCOSE 110 mg/dL (70-99)
[2017-11-08 13:28] VITALS: BP 112/75
[2017-11-08 15:49] VITALS: BP 114/78
== END 2017-11-08 18:43 | DRG 190 ==
LOC: EME → EDBD 06:53 → 2EAST 12:29 → EDOF 12:29 → ENRESERV 12:32 → 2EAST 14:00 → ENPENDDIS 11-08 → 2EAST 11-08 18:43
PROVIDERS: Emergency Medicine; Family Medicine; Internal Medicine
DX: J44.0 Chronic obstructive pulmonary disease with (acute) lower respiratory infection (principal); J44.1 Chronic obstructive pulmonary disease with (acute) exacerbation; J18.9 Pneumonia, unspecified organism; E78.5 Hyperlipidemia, unspecified; E66.01 Morbid (severe) obesity due to excess calories; I48.2 Chronic atrial fibrillation; F32.9 Major depressive disorder, single episode, unspecified; F41.9 Anxiety disorder, unspecified; M19.90 Unspecified osteoarthritis, unspecified site; Z68.42 Body mass index [BMI] 45.0-49.9, adult; G47.30 Sleep apnea, unspecified; Z87.891 Personal history of nicotine dependence; F03.90 Unspecified dementia, unspecified severity, without behavioral disturbance, psychotic disturbance, mood disturbance, and anxiety; E11.51 Type 2 diabetes mellitus with diabetic peripheral angiopathy without gangrene; R09.02 Hypoxemia; Z79.01 Long term (current) use of anticoagulants; Z79.84 Long term (current) use of oral hypoglycemic drugs; I10 Essential (primary) hypertension
CPT/HCPCS: 71045; 71046; 71275; 80048; 80202; 82948; 83880; 84484; 85025; 85027; 85379; 85610; 85730; 87040; 87070; 87205; 93005; 94640 76; 94799; 99202; 99281; 99285; J1644; J2405; J2543; J3370; J7050

== ENCOUNTER 2017-11-26 12:39 | Inpatient (IN) | payer OTHER ==
[~2017-11-26] VITALS: Ht 157.5 cm; Wt 114.8 kg
[~2017-11-26 12:39] MED LIST changes: +BUSPIRONE HCL5 MG PO; +COUMADIN2 MG PO; -COUMADIN2.5 MG PO; +GLIPIZIDE5 MG PO; +JANUVIA25 M1 PO
[2017-11-26 13:24] LABS: MCH 28.1 PG (29.0-34.0); MCHC 32.4 G/DL (30.0-36.0); PLATELET COUNT 333 K/uL (156-360); RBC DIS.WIDTH-CV 21.2 % (11.8-14.6); RBC DIS.WIDTH-SD 65.8 % (39-53); RED BLOOD COUNT 3.91 M/uL (3.80-5.20); WHITE BLOOD COUNT 8.6 K/uL (4.1-10.2)
[2017-11-26 13:35] LABS: ALBUMIN 3.4 g/dL (3.2-4.8); CHLORIDE 103 mEq/L (99-109); POTASSIUM 4.2 mEq/L (3.7-5.4); SODIUM 142 mEq/L (136-147)
[2017-11-26 13:37] LABS: GLUCOSE 62 mg/dL (70-99); TOTAL PROTEIN 7.4 g/dL (6.4-8.3)
[2017-11-26 13:39] LABS: TOTAL BILIRUBIN 0.7 mg/dL (0.0-1.0)
[2017-11-26 13:41] LABS: ALKALINE PHOSPHATASE 70 IU/L (3-129); CREATININE 3.8 mg/dL (0.6-1.3); GFR ESTIMATE (CALCULATED) 12 mL/min/
[2017-11-26 13:42] LABS: UREA NITROGEN (BUN) 37 mg/dL (9-23)
[2017-11-26 13:43] LABS: AST (GOT) 22 IU/L (2-34)
[2017-11-26 13:44] LABS: ALT (GPT) 14 IU/L (3-49)
[2017-11-26 13:56] LABS: TROP-I INTERPRETATION NEGATIVE; TROPONIN-I 0.19 ng/mL (0.0-0.30)
[2017-11-26] MEDS ORDERED: ATIVAN0.5 MG PO ×2 (17:15→17:23)
[2017-11-26] MEDS ORDERED: INCRUSE ELLI62.5 MCG IH (17:17)
[2017-11-26] MEDS ORDERED: ALLOPURINOL300 MG PO (17:23)
[2017-11-26] MEDS ORDERED: TYLENOL REGULA325 MG PO (17:24)
[2017-11-26] MEDS ORDERED: NYSTOP60 GM TP (17:25)
[2017-11-26] MEDS ORDERED: SILVADENE20 GM TP (17:26)
[2017-11-26 18:28] LABS: INTER. NORMALIZED RATIO 2.4
[2017-11-26 21:50] VITALS: BP 154/85
[2017-11-26 23:49] LABS: TROP-I INTERPRETATION NEGATIVE
[2017-11-26 23:55] VITALS: BP 129/85
[2017-11-27] VITALS (7 sets, daily range): BP systolic 120–181; BP diastolic 72–129
[2017-11-27 05:55] LABS: TROP-I INTERPRETATION NEGATIVE; TROPONIN-I 0.19 ng/mL (0.0-0.30)
[2017-11-27 08:24] LABS: HEMATOCRIT 30.8 % (36.0-46.0); HEMOGLOBIN 9.5 G/DL (11.9-15.5); MCH 27.3 PG (29.0-34.0); MCHC 30.8 G/DL (30.0-36.0); MCV 88.5 FL (83-99); NRBC (%) 1.4 /100 WBC (0-0); PLATELET COUNT 340 K/uL (156-360); RBC DIS.WIDTH-CV 21.7 % (11.8-14.6); RBC DIS.WIDTH-SD 66.1 % (39-53); RED BLOOD COUNT 3.48 M/uL (3.80-5.20); WHITE BLOOD COUNT 6.6 K/uL (4.1-10.2)
[2017-11-27 08:25] LABS: BASOPHIL (%) 0.6 % (0-1); EOSINOPHIL COUNT 0.3 K/uL (0-0.3); IMMATURE GRANULOCYTE (%) 0.5 % (0.0-0.7); LYMPHOCYTE (%) 15.2 % (15-42); MONOCYTE COUNT 0.9 K/uL (0-0.8); NEUTROPHIL (%) 65.7 % (45-76); NEUTROPHIL COUNT 4.4 K/uL (1.8-6.4)
[2017-11-27 08:46] LABS: CHLORIDE 103 MEQ/L (99-109); CREATININE 3.6 MG/DL (0.6-1.3); GFR ESTIMATE (CALCULATED) 13 mL/min/; MAGNESIUM 1.8 mg/dl (1.3-2.7); PHOSPHORUS 4.2 mg/dL (2.5-4.9); POTASSIUM 3.6 MEQ/L (3.7-5.4); SODIUM 141 MEQ/L (136-147); UREA NITROGEN (BUN) 37 mg/dL (9-23)
[2017-11-27 08:53] LABS: GLUCOSE 100 mg/dL (70-99)
[2017-11-28] VITALS (23 sets, daily range): BP systolic 89–175; BP diastolic 60–160
[2017-11-28 00:25] LABS: BICARBONATE 22.6 mEq/L (22-26); COMMENTS - BLOOD GASES C+A+; DEVICE NIV; FI02 100 %; METHEMOGLOBIN 1.7 % (0-1.5); MODE SPONT; PCO2 47 mm Hg (35-45); PEEP 8 CM/H20; PO2 333 mm Hg (80-100); PRES. SUPPORT 12 CM/H2O; SITE LR; TOTAL RESP RATE 20 resp/min
[2017-11-28 00:27] LABS: pH 7.29 (7.35-7.45)
[2017-11-28 00:36] LABS: BASOPHIL (%) 0.5 % (0-1); BASOPHIL COUNT 0.1 K/uL (0-0.1); EOSINOPHIL (%) 1.8 % (0-5); EOSINOPHIL COUNT 0.2 K/uL (0-0.3); HEMATOCRIT 35.1 % (36.0-46.0); HEMOGLOBIN 11.1 G/DL (11.9-15.5); IMMATURE GRANULOCYTE (%) 0.5 % (0.0-0.7); LYMPHOCYTE (%) 8.3 % (15-42); LYMPHOCYTE COUNT 0.9 K/uL (1.0-2.8); MCH 27.8 PG (29.0-34.0); MCHC 31.6 G/DL (30.0-36.0); MCV 87.8 FL (83-99); MONOCYTE (%) 7.2 % (3-12); MONOCYTE COUNT 0.8 K/uL (0-0.8); NEUTROPHIL (%) 81.7 % (45-76); NEUTROPHIL COUNT 8.9 K/uL (1.8-6.4); NRBC (%) 0.7 /100 WBC (0-0); PLATELET COUNT 328 K/uL (156-360); RBC DIS.WIDTH-CV 21.6 % (11.8-14.6); RBC DIS.WIDTH-SD 67.4 % (39-53)
[2017-11-28 00:53] LABS: ALBUMIN 3.5 g/dL (3.2-4.8); CHLORIDE 106 mEq/L (99-109); POTASSIUM 4.3 mEq/L (3.7-5.4); SODIUM 143 mEq/L (136-147)
[2017-11-28 00:54] LABS: MAGNESIUM 1.7 mg/dL (1.3-2.7)
[2017-11-28 00:56] LABS: TOTAL PROTEIN 7.1 g/dL (6.4-8.3)
[2017-11-28 00:57] LABS: GLUCOSE 171 mg/dL (70-99)
[2017-11-28 00:58] LABS: TOTAL BILIRUBIN 0.6 mg/dL (0.0-1.0)
[2017-11-28 00:59] LABS: ALKALINE PHOSPHATASE 76 IU/L (3-129)
[2017-11-28 01:00] LABS: CREATININE 3.4 mg/dL (0.6-1.3); GFR ESTIMATE (CALCULATED) 14 mL/min/
[2017-11-28 01:01] LABS: AST (GOT) 23 IU/L (2-34); UREA NITROGEN (BUN) 35 mg/dL (9-23)
[2017-11-28 01:02] LABS: ALT (GPT) 14 IU/L (3-49); TROP-I INTERPRETATION NEGATIVE; TROPONIN-I 0.19 ng/mL (0.0-0.30)
[2017-11-28 04:24] LABS: BASOPHIL (%) 0.3 % (0-1); EOSINOPHIL (%) 0.3 % (0-5); HEMATOCRIT 32.4 % (36.0-46.0); HEMOGLOBIN 10.2 G/DL (11.9-15.5); IMMATURE GRANULOCYTE (%) 0.8 % (0.0-0.7); LYMPHOCYTE (%) 5.8 % (15-42); LYMPHOCYTE COUNT 0.4 K/uL (1.0-2.8); MCH 27.9 PG (29.0-34.0); MCHC 31.5 G/DL (30.0-36.0); MCV 88.5 FL (83-99); MONOCYTE (%) 9.4 % (3-12); MONOCYTE COUNT 0.7 K/uL (0-0.8); NEUTROPHIL (%) 83.4 % (45-76); NEUTROPHIL COUNT 6.3 K/uL (1.8-6.4); NRBC (%) 0.8 /100 WBC (0-0); PLATELET COUNT 280 K/uL (156-360); RBC DIS.WIDTH-CV 21.6 % (11.8-14.6); RBC DIS.WIDTH-SD 66.4 % (39-53); RED BLOOD COUNT 3.66 M/uL (3.80-5.20); WHITE BLOOD COUNT 7.6 K/uL (4.1-10.2)
[2017-11-28 04:30] LABS: INTER. NORMALIZED RATIO 1.8
[2017-11-28 04:35] LABS: CHLORIDE 106 mEq/L (99-109); POTASSIUM 4.4 mEq/L (3.7-5.4); SODIUM 141 mEq/L (136-147)
[2017-11-28 04:36] LABS: MAGNESIUM 1.7 mg/dL (1.3-2.7)
[2017-11-28 04:37] LABS: GLUCOSE 121 mg/dL (70-99)
[2017-11-28 04:41] LABS: CREATININE 3.4 mg/dL (0.6-1.3); GFR ESTIMATE (CALCULATED) 14 mL/min/; PHOSPHORUS 4.7 mg/dL (2.5-4.9)
[2017-11-28 04:42] LABS: UREA NITROGEN (BUN) 36 mg/dL (9-23)
[2017-11-28 04:44] LABS: CREATINE KINASE 25 IU/L (1-294); TOTAL CK 25 IU/L (1-294); URIC ACID 11.2 mg/dL (3.1-9.2)
[2017-11-28 04:50] LABS: CK-MB 2.3 ng/mL (0.0-4.9); CKMB RELATIVE INDEX 9.2 (0.0-3.9)
[2017-11-28 05:51] LABS: VANCOMYCIN, TROUGH 4.7 MCG/ML (10-20)
[2017-11-28 05:53] LABS: APPEARANCE CLEAR ((CLEAR)); BILIRUBIN NEGATIVE; BLOOD LARGE; COLOR YELLOW ((YELLOW)); GLUCOSE (STRIP) NEGATIVE; KETONES NEGATIVE; LEUKOCYTES NEGATIVE; NITRITE NEGATIVE; PROTEIN (STRIP) 30; SPECIFIC GRAVITY 1.011 (1.000-1.030); UROBILINOGEN 0.2 MG/DL (0.2-1.0)
[2017-11-28 06:22] LABS: BACTERIA RARE /HPF; EPITHELIAL CELLS RARE /HPF; HYALINE CASTS 15-20 /LPF; MUCUS TRACE /LPF; RED BLOOD CELLS TNTC /HPF (0-5); UCUL ADDED? YES
[2017-11-28 07:05] LABS: UR CREATININE CONCENTRATION 98.8 MG/DL
[2017-11-29] VITALS (20 sets, daily range): BP systolic 102–158; BP diastolic 77–112
[2017-11-29 06:53] LABS: INTER. NORMALIZED RATIO 1.6
[2017-11-29 06:56] LABS: BASOPHIL (%) 0.2 % (0-1); EOSINOPHIL (%) 0.7 % (0-5); EOSINOPHIL COUNT 0.1 K/uL (0-0.3); HEMATOCRIT 32.3 % (36.0-46.0); HEMOGLOBIN 10.2 G/DL (11.9-15.5); IMMATURE GRANULOCYTE (%) 0.6 % (0.0-0.7); LYMPHOCYTE (%) 11.6 % (15-42); MCHC 31.6 G/DL (30.0-36.0); MCV 88.7 FL (83-99); MONOCYTE (%) 10.6 % (3-12); MONOCYTE COUNT 0.9 K/uL (0-0.8); NEUTROPHIL (%) 76.3 % (45-76); NEUTROPHIL COUNT 6.6 K/uL (1.8-6.4); NRBC (%) 0.6 /100 WBC (0-0); PLATELET COUNT 283 K/uL (156-360); RBC DIS.WIDTH-CV 21.7 % (11.8-14.6); RED BLOOD COUNT 3.64 M/uL (3.80-5.20); WHITE BLOOD COUNT 8.6 K/uL (4.1-10.2)
[2017-11-29 07:39] LABS: CHLORIDE 102 MEQ/L (99-109); CREATININE 3.2 MG/DL (0.6-1.3); GFR ESTIMATE (CALCULATED) 15 mL/min/; POTASSIUM 3.7 MEQ/L (3.7-5.4); SODIUM 141 MEQ/L (136-147); UREA NITROGEN (BUN) 37 mg/dL (9-23)
[2017-11-29 07:43] LABS: GLUCOSE 65 mg/dL (70-99)
[2017-11-29 18:38] LABS: GLUCOSE 56 mg/dL (70-99)
[2017-11-29 22:17] LABS: CHLORIDE 101 MEQ/L (99-109); POTASSIUM 3.4 MEQ/L (3.7-5.4); SODIUM 135 MEQ/L (136-147)
[2017-11-30] VITALS (16 sets, daily range): BP systolic 101–150; BP diastolic 66–108
[2017-11-30 05:36] LABS: CHLORIDE 103 mEq/L (99-109); POTASSIUM 3.6 mEq/L (3.7-5.4); SODIUM 140 mEq/L (136-147)
[2017-11-30 05:39] LABS: INTER. NORMALIZED RATIO 1.8
[2017-11-30 05:40] LABS: BASOPHIL (%) 0.2 % (0-1); EOSINOPHIL (%) 0.7 % (0-5); HEMATOCRIT 30.7 % (36.0-46.0); HEMOGLOBIN 9.8 G/DL (11.9-15.5); IMMATURE GRANULOCYTE (%) 0.5 % (0.0-0.7); LYMPHOCYTE (%) 10.6 % (15-42); LYMPHOCYTE COUNT 0.6 K/uL (1.0-2.8); MCH 27.6 PG (29.0-34.0); MCHC 31.9 G/DL (30.0-36.0); MCV 86.5 FL (83-99); MONOCYTE (%) 12.1 % (3-12); MONOCYTE COUNT 0.7 K/uL (0-0.8); NEUTROPHIL (%) 75.9 % (45-76); NEUTROPHIL COUNT 4.6 K/uL (1.8-6.4); NRBC (%) 0.5 /100 WBC (0-0); PLATELET COUNT 230 K/uL (156-360); RBC DIS.WIDTH-CV 21.1 % (11.8-14.6); RBC DIS.WIDTH-SD 65.6 % (39-53); RED BLOOD COUNT 3.55 M/uL (3.80-5.20); WHITE BLOOD COUNT 6.1 K/uL (4.1-10.2)
[2017-11-30 05:41] LABS: CHLORIDE 103 mEq/L (99-109); POTASSIUM 3.3 mEq/L (3.7-5.4); SODIUM 140 mEq/L (136-147)
[2017-11-30 05:42] LABS: GLUCOSE 78 mg/dL (70-99)
[2017-11-30 05:46] LABS: CREATININE 2.8 mg/dL (0.6-1.3); GFR ESTIMATE (CALCULATED) 17 mL/min/
[2017-11-30 05:47] LABS: UREA NITROGEN (BUN) 37 mg/dL (9-23)
[2017-11-30 12:42] LABS: CHLORIDE 103 MEQ/L (99-109); CREATININE 2.7 MG/DL (0.6-1.3); GFR ESTIMATE (CALCULATED) 18 mL/min/; GLUCOSE 92 mg/dL (70-99); MAGNESIUM 1.7 mg/dl (1.3-2.7); POTASSIUM 3.7 MEQ/L (3.7-5.4); SODIUM 137 MEQ/L (136-147); UREA NITROGEN (BUN) 36 mg/dL (9-23)
[2017-11-30 19:20] LABS: CHLORIDE 101 MEQ/L (99-109); CREATININE 2.5 MG/DL (0.6-1.3); GFR ESTIMATE (CALCULATED) 20 mL/min/; GLUCOSE 98 mg/dL (70-99); MAGNESIUM 2.1 mg/dl (1.3-2.7); POTASSIUM 3.7 MEQ/L (3.7-5.4); SODIUM 136 MEQ/L (136-147); UREA NITROGEN (BUN) 36 mg/dL (9-23)
[2017-11-30 22:23] LABS: CHLORIDE 100 MEQ/L (99-109); POTASSIUM 3.4 MEQ/L (3.7-5.4); SODIUM 134 MEQ/L (136-147)
[2017-12-01] VITALS (7 sets, daily range): BP systolic 88–124; BP diastolic 71–87
[2017-12-01 00:59] LABS: CHLORIDE 103 mEq/L (99-109); POTASSIUM 3.7 mEq/L (3.7-5.4); SODIUM 140 mEq/L (136-147)
[2017-12-01 01:00] LABS: MAGNESIUM 1.8 mg/dL (1.3-2.7)
[2017-12-01 01:01] LABS: GLUCOSE 86 mg/dL (70-99)
[2017-12-01 01:05] LABS: CREATININE 2.6 mg/dL (0.6-1.3); GFR ESTIMATE (CALCULATED) 19 mL/min/
[2017-12-01 01:06] LABS: UREA NITROGEN (BUN) 35 mg/dL (9-23)
[2017-12-01 05:05] LABS: INTER. NORMALIZED RATIO 1.8
[2017-12-01 05:20] LABS: CHLORIDE 101 mEq/L (99-109); MAGNESIUM 1.8 mg/dL (1.3-2.7); POTASSIUM 3.6 mEq/L (3.7-5.4); SODIUM 139 mEq/L (136-147)
[2017-12-01 05:21] LABS: GLUCOSE 83 mg/dL (70-99)
[2017-12-01 05:25] LABS: CREATININE 2.6 mg/dL (0.6-1.3); GFR ESTIMATE (CALCULATED) 19 mL/min/
[2017-12-01 05:26] LABS: UREA NITROGEN (BUN) 38 mg/dL (9-23)
== END 2017-12-02 06:57 | DRG 682 ==
LOC: EME 12:39 → EDOF 17:00 → 4WEST 17:00 → ENRESERV 17:04 → 4EAST 21:55 → 4WEST 11-28 00:02 → ENRESERV 11-28 00:02 → 4WEST 11-28 00:13 → ENRESERV 12-01 16:45 → 5EAST 12-01 17:50
PROVIDERS: Family Medicine; Internal Medicine Critical Care Medicine; Internal Medicine Nephrology; Specialist
PROC: 5A0935Z Assistance with Respiratory Ventilation, Less than 24 Consecutive Hours (ICD-10-PCS; principal; 2017-11-27)
DX: N17.9 Acute kidney failure, unspecified (principal); J96.01 Acute respiratory failure with hypoxia; N18.3 Chronic kidney disease, stage 3 (moderate); I13.0 Hypertensive heart and chronic kidney disease with heart failure and stage 1 through stage 4 chronic kidney disease, or unspecified chronic kidney disease; E11.22 Type 2 diabetes mellitus with diabetic chronic kidney disease; D64.9 Anemia, unspecified; E87.6 Hypokalemia; R26.9 Unspecified abnormalities of gait and mobility; E66.2 Morbid (severe) obesity with alveolar hypoventilation; F32.9 Major depressive disorder, single episode, unspecified; E66.01 Morbid (severe) obesity due to excess calories; I48.2 Chronic atrial fibrillation; J44.9 Chronic obstructive pulmonary disease, unspecified; F41.9 Anxiety disorder, unspecified; Z77.22 Contact with and (suspected) exposure to environmental tobacco smoke (acute) (chronic); J98.11 Atelectasis; F03.90 Unspecified dementia, unspecified severity, without behavioral disturbance, psychotic disturbance, mood disturbance, and anxiety; R60.0 Localized edema; E11.51 Type 2 diabetes mellitus with diabetic peripheral angiopathy without gangrene; Z79.01 Long term (current) use of anticoagulants; E87.2 Acidosis; Z51.5 Encounter for palliative care; M19.90 Unspecified osteoarthritis, unspecified site; Z90.710 Acquired absence of both cervix and uterus; Z90.49 Acquired absence of other specified parts of digestive tract; Z68.42 Body mass index [BMI] 45.0-49.9, adult; Z99.81 Dependence on supplemental oxygen; Z86.73 Personal history of transient ischemic attack (TIA), and cerebral infarction without residual deficits; Z87.891 Personal history of nicotine dependence; Z66 Do not resuscitate; I50.9 Heart failure, unspecified
CPT/HCPCS: 36600; 71045; 71046; 76705; 76770; 80048; 80048 91; 80051; 80053; 80202; 81003; 82043; 82550; 82553; 82570; 82803; 82948; 83605; 83735; 83880; 84100; 84484; 84550; 84999; 85025; 85025 91; 85027; 85610; 87086; 87641; 89190; 93005; 94002; 94003; 94640; 94640 76; 94760; 94799; 99202; 99281; 99285; C1751; J1940; J2060; J2250; J2270; J3010; J3370; J3475; J3480; J7030; S0073